=== PATIENT | female | born 1990 | race Caucasian/White ===

== ENCOUNTER 2018-06-24 18:22 | Inpatient (IN) ==
[2018-06-24] MEDS ORDERED: IOPAMIDOL 100 ML BOTTLE IV ONE (18:23)
[2018-06-24] MEDS ORDERED: ONDANSETRON 4 MG/2 ML VIAL IV ONE (18:45)
[2018-06-24] MEDS ORDERED: 0.9 % SODIUM CHLORIDE 1,000 ML IV ONE (18:45)
--- NOTE | 2018-06-24 18:49 | Emergency Department Note ---
Abdominal Pain HPI - General Chief Complaint: Abdominal Pain Stated Complaint: RLQ Abdominal Pain, Abdominal Girdle Pain Time Seen by Provider: 06/24/18 18:40 Source: patient Mode of arrival: ambulatory Limitations: no limitations - Related Data Home Medications Medication Instructions Recorded Confirmed Citalopram [Celexa] 20 mg PO DAILY 04/01/17 04/01/17 Omeprazole 20 mg PO DAILY 04/01/17 04/01/17 Allergies Allergy/AdvReac Type Severity Reaction Status Date / Time ceftriaxone [From Rocephin] Allergy Hives Verified 04/01/17 14:09 Abdominal Pain PMH - Past Medical History Medical history: Reports: 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 - Social History Smoking status: Current every day smoker Physical Exam Limitations: no limitations Course Vital Signs Temperature 98.0 F 06/24/18 18:24 Pulse Rate 88 06/24/18 18:24 Respiratory Rate 30 H 06/24/18 18:24 Blood Pressure 102/76 06/24/18 18:24 Pulse Oximetry (%) 97 06/24/18 18:24 Temperature 96.6 F L 06/25/18 03:16 Pulse Rate 70 06/25/18 03:16 Respiratory Rate 12 06/25/18 03:16 Blood Pressure 110/60 06/25/18 03:16 Pulse Oximetry (%) 97 06/25/18 03:16 Abdominal Pain - [facility] Narrative Medical decision making narrative: Patient seen in conjunction with [facility], agree with diagnosis and treatment and review of the x-rays and laboratory tests patient admitted to Dr. Gamble's service for acute appendicitis. - Lab Data Result diagrams: 06/24/18 18:47 06/24/18 18:47 Lab Results 06/24/18 06/24/18 06/24/18 Range/Units 18:47 18:47 18:50 WBC 19.9 H (4.5-11.0) K/mcL RBC 4.12 (4.00-5.20) M/mcL Hgb 12.6 (12.0-15.0) g/dL Hct 37.2 (36.0-48.0) % POC Hct (36.0-48.0) % MCV 90.3 (80.0-100.0) fL MCH 30.6 (26.0-34.0) pg MCHC 33.9 (31.0-36.0) g/dL RDW 12.6 (11.5-14.5) % Plt Count 237 (140-440) K/mcL MPV 10.5 H (7.4-10.4) fL Total Counted 100 Seg Neutrophils % 80 H (38-78) % Band Neutrophils % Not Reportable Lymphocytes % 14 L (15-49) % Monocytes % (Manual) 4 (1-12) % Eosinophils % (Manual) 1 (0-7) % Reactive Lymphocytes 1 (0-2) % Platelet Estimate Normal (NORMAL) RBC Morphology Normal (NORMAL) POC Sodium (133-145) mmol/L Sodium 138 (133-145) mmol/L POC Potassium (3.3-5.1) mmol/L Potassium 3.6 (3.3-5.1) mmol/L POC Chloride (96-108) mmol/L Chloride 104 (96-108) mmol/L Carbon Dioxide 21 L (22-30) mmol/L POC Total CO2 (22-30) mmol/L Anion Gap 13.0 (8-16) POC BUN (6-20) mg/dl BUN 16 (6-20) mg/dl Creatinine 0.8 (0.6-1.1) mg/dl POC Creatinine (0.6-1.1) mg/dl GFR Calculation 100 Glucose 117 H (70-105) mg/dL POC Glucose (70-105) mg/dL Calcium 8.8 (8.6-10.4) mg/dl POC WB Ioniz Calcium (1.16-1.32) mmol/L Total Bilirubin 0.2 (0.0-1.0) mg/dL AST 39 H (0-37) U/l ALT 52 H (0-40) U/l Alkaline Phosphatase 83 (39-117) U/L Total Protein 7.0 (5.9-8.4) gm/dL Albumin 4.3 (3.2-5.2) gm/dL Globulin 2.7 (2.2-3.7) gm/dL Albumin/Globulin Ratio 1.6 (1.0-2.3) Lipase 29 (7-60) U/L Urine Color Yellow Urine Appearance Hazy Urine pH 5.0 (5.0-9.0) Ur Specific [place] 1.028 (1.000-1.035) Urine Protein Neg (NEG) mg/dL Urine Glucose (UA) Negative (NEG) mg/dL Urine Ketones Neg (NEG) mg/dL Urine Occult Blood Neg (<0.03) mg/dL Urine Nitrate Neg (NEG) Urine Bilirubin Neg (NEG) mg/dL Urine Urobilinogen Neg (NEG) mg/dL Ur Leukocyte Esterase Neg (NEG) /uL Urine RBC < 1 (0-1) /hpf Urine WBC 2 (0-4) /hpf Ur Squamous Epith Cells 18 H (0-4) /hpf Ur Transition Epith Cell < 1 (0-2) /hpf Urine Bacteria 0 (0) /hpf Urine Mucus Many A (0) /hpf Ur Culture Indicated? No 06/24/18 Range/Units 19:15 WBC (4.5-11.0) K/mcL RBC (4.00-5.20) M/mcL Hgb (12.0-15.0) g/dL Hct (36.0-48.0) % POC Hct 36.0 (36.0-48.0) % MCV (80.0-100.0) fL MCH (26.0-34.0) pg MCHC (31.0-36.0) g/dL RDW (11.5-14.5) % Plt Count (140-440) K/mcL MPV (7.4-10.4) fL Total Counted Seg Neutrophils % (38-78) % Band Neutrophils % Lymphocytes % (15-49) % Monocytes % (Manual) (1-12) % Eosinophils % (Manual) (0-7) % Reactive Lymphocytes (0-2) % Platelet Estimate (NORMAL) RBC Morphology (NORMAL) POC Sodium 141 (133-145) mmol/L Sodium (133-145) mmol/L POC Potassium 3.4 (3.3-5.1) mmol/L Potassium (3.3-5.1) mmol/L POC Chloride 103 (96-108) mmol/L Chloride (96-108) mmol/L Carbon Dioxide (22-30) mmol/L POC Total CO2 24 (22-30) mmol/L Anion Gap (8-16) POC BUN 16 (6-20) mg/dl BUN (6-20) mg/dl Creatinine (0.6-1.1) mg/dl POC Creatinine 0.7 (0.6-1.1) mg/dl GFR Calculation Glucose (70-105) mg/dL POC Glucose 116 H (70-105) mg/dL Calcium (8.6-10.4) mg/dl POC WB Ioniz Calcium 1.08 L (1.16-1.32) mmol/L Total Bilirubin (0.0-1.0) mg/dL AST (0-37) U/l ALT (0-40) U/l Alkaline Phosphatase (39-117) U/L Total Protein (5.9-8.4) gm/dL Albumin (3.2-5.2) gm/dL Globulin (2.2-3.7) gm/dL Albumin/Globulin Ratio (1.0-2.3) Lipase (7-60) U/L Urine Color Urine Appearance Urine pH (5.0-9.0) Ur Specific [place] (1.000-1.035) Urine Protein (NEG) mg/dL Urine Glucose (UA) (NEG) mg/dL Urine Ketones (NEG) mg/dL Urine Occult Blood (<0.03) mg/dL Urine Nitrate (NEG) Urine Bilirubin (NEG) mg/dL Urine Urobilinogen (NEG) mg/dL Ur Leukocyte Esterase (NEG) /uL Urine RBC (0-1) /hpf Urine WBC (0-4) /hpf Ur Squamous Epith Cells (0-4) /hpf Ur Transition Epith Cell (0-2) /hpf Urine Bacteria (0) /hpf Urine Mucus (0) /hpf Ur Culture Indicated? Disposition Pt seen by SUPERVISOR PLEATING/PA only: No Clinical Impression: Acute appendicitis Disposition: Xfer As Inpt ([facility]) Condition: Fair
[2018-06-24 19:18] LABS: Mean Cell Volume 90.3 fL (80.0-100.0); Mean Corpuscular HGB Conc 33.9 g/dL (31.0-36.0); Mean Corpuscular Hemoglobin 30.6 pg (26.0-34.0); Platelet Count 237 K/mcL (140-440); RBC 4.12 M/mcL (4.00-5.20); Red Cell Distribution Width 12.6 % (11.5-14.5)
[2018-06-24 19:39] LABS: ALT/SGPT 52 U/l (0-40); Albumin 4.3 gm/dL (3.2-5.2); Albumin/Globulin Ratio 1.6 (1.0-2.3); Alkaline Phosphatase 83 U/L (39-117); Blood Urea Nitrogen 16 mg/dl (6-20); Lipase 29 U/L (7-60)
[2018-06-24 19:43] LABS: Eosinophils % (Manual) 1 % (0-7); Lymphocytes % 14 % (15-49); Monocytes % (Manual) 4 % (1-12); Platelet Estimate NORMAL (NORMAL); RBC Morphology NORMAL (NORMAL); Segmented Neutrophils % 80 % (38-78)
[2018-06-24] MEDS: HYDROmorphone 2 MG/ML VIAL IV PRN ×4 (19:46→23:20)
[2018-06-24 19:48] LABS: Appearance,Urine HAZY; Bacteria,Urine 0 /hpf (0); Bilirubin,Urine NEG (NEG); Color,Urine YELLOW; Glucose,Urine (UA) NEGATIVE (NEG); Leukocyte Esterase,Urine NEG /uL (NEG); Mucus,Urine MANY /hpf (0); Protein,Urine NEG (NEG); Specific Gravity,Urine 1.028 (1.000-1.035); Urine Blood NEG mg/dL (<0.03); Urine RBC < 1 /hpf (0-1); Urine Squamous Epithelial Cell 18 /hpf (0-4); Urine Transitional Epi Cells < 1 /hpf (0-2); Urine WBC 2 /hpf (0-4); Urobilinogen,Urine NEG (NEG)
--- NOTE | 2018-06-24 19:59 | Emergency Department Note ---
Abdominal Pain HPI - General Chief Complaint: Abdominal Pain Stated Complaint: RLQ Abdominal Pain, Abdominal Girdle Pain Time Seen by Provider: 06/24/18 18:40 Source: patient Mode of arrival: ambulatory Limitations: no limitations - History of Present Illness HPI Narrative: 27-year-old female presents to the emergency department stating with complaint of right lower quadrant and epigastric pain that began this morning around 1100. She describes pain as sharp and rates pain 8 out of 10 on a 0-10 numerical pain scale. She states that she is also nauseous and has had vomiting of yellow foamy vomit. She denies any fevers but states that she has been chilled. She reports last menstrual period was June 05, 2018. - Related Data Home Medications Medication Instructions Recorded Confirmed Citalopram [Celexa] 20 mg PO DAILY 04/01/17 04/01/17 Omeprazole 20 mg PO DAILY 04/01/17 04/01/17 Allergies Allergy/AdvReac Type Severity Reaction Status Date / Time ceftriaxone [From Rocephin] Allergy Hives Verified 04/01/17 14:09 Review of Systems Review of Systems: Except as noted in the HPI, a Review of Systems was found to be negative. Specifically: Constitutional: No chronic fatigue, unexplained weight gain, or weight loss. Eyes: No visual impairment, no pain, watering, discharge, or itching. ENT: No ear or sinus infections. No reoccurring nosebleeds, no chronic nasal congestion. No mouth lesions or dental pain. No throat pain or dysphagia. Respiratory: No wheezing, dyspnea on exertion, or chronic cough. CV: No chest pain, cyanosis, palpitations, dizziness, or fainting. GI: No reflux symptoms, or diarrhea. Musculoskeletal: No muscle pain or weakness, no joint pain or limitations. Neurologic: No headache, weakness, numbness, dizziness, or seizures. Endocrine: No hot or cold intolerances, excessive sweating, excessive thirst, or frequent urination. Hematologic/lymphatic: No blood disorder. No swollen lymph nodes. Integumentary: No problem with rashes, eczema, changing of skin lesions. No nail abnormalities. Psychiatric: No depression, anxiety, or sleep disorder. 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 Absent: distention, guarding, rigidity Abdominal tenderness: Present: RLQ, epigastrium Extremities: Present: normal inspection, full ROM, normal capillary refill. Absent: tenderness, pedal edema, pretibial edema Back: Present: normal inspection. Absent: CVA tenderness (R), CVA tenderness (L ) Neurological: Present: alert, oriented X3 Skin: Present: warm, dry, intact, normal color Course Vital Signs Temperature 98.0 F 06/24/18 18:24 Pulse Rate 88 06/24/18 18:24 Respiratory Rate 30 H 06/24/18 18:24 Blood Pressure 102/76 06/24/18 18:24 Pulse Oximetry (%) 97 06/24/18 18:24 Temperature 98.0 F 06/24/18 18:24 Pulse Rate 72 06/24/18 20:31 Respiratory Rate 30 H 06/24/18 18:24 Blood Pressure 124/79 06/24/18 20:31 Pulse Oximetry (%) 97 06/24/18 20:31 Abdominal Pain - MDM Narrative Medical decision making narrative: CBC shows leukocytosis of 19.9 elevation of AST at 39 and ALTs at 52. Urinalysis is remarkably well. CT abdomen and pelvis suggesting early acute appendicitis. Spoke with Dr. Jimi Gamble who will see the patient tomorrow for possible appendectomy. Patient was given pain medication, nausea medication , fluids via IV, Levaquin 750 mg IV every 24 hours, and will be nothing by mouth after midnight. She will be admitted to [facility] floor. - Lab Data Lab results reviewed: Yes I reviewed the patient's lab results. Result diagrams: 06/24/18 18:47 06/24/18 18:47 Lab Results 06/24/18 06/24/18 06/24/18 Range/Units 18:47 18:47 18:50 WBC 19.9 H (4.5-11.0) K/mcL RBC 4.12 (4.00-5.20) M/mcL Hgb 12.6 (12.0-15.0) g/dL Hct 37.2 (36.0-48.0) % POC Hct (36.0-48.0) % MCV 90.3 (80.0-100.0) fL MCH 30.6 (26.0-34.0) pg MCHC 33.9 (31.0-36.0) g/dL RDW 12.6 (11.5-14.5) % Plt Count 237 (140-440) K/mcL MPV 10.5 H (7.4-10.4) fL Total Counted 100 Seg Neutrophils % 80 H (38-78) % Band Neutrophils % Not Reportable Lymphocytes % 14 L (15-49) % Monocytes % (Manual) 4 (1-12) % Eosinophils % (Manual) 1 (0-7) % Reactive Lymphocytes 1 (0-2) % Platelet Estimate Normal (NORMAL) RBC Morphology Normal (NORMAL) POC Sodium (133-145) mmol/L Sodium 138 (133-145) mmol/L POC Potassium (3.3-5.1) mmol/L Potassium 3.6 (3.3-5.1) mmol/L POC Chloride (96-108) mmol/L Chloride 104 (96-108) mmol/L Carbon Dioxide 21 L (22-30) mmol/L POC Total CO2 (22-30) mmol/L Anion Gap 13.0 (8-16) POC BUN (6-20) mg/dl BUN 16 (6-20) mg/dl Creatinine 0.8 (0.6-1.1) mg/dl POC Creatinine (0.6-1.1) mg/dl GFR Calculation 100 Glucose 117 H (70-105) mg/dL POC Glucose (70-105) mg/dL Calcium 8.8 (8.6-10.4) mg/dl POC WB Ioniz Calcium (1.16-1.32) mmol/L Total Bilirubin 0.2 (0.0-1.0) mg/dL AST 39 H (0-37) U/l ALT 52 H (0-40) U/l Alkaline Phosphatase 83 (39-117) U/L Total Protein 7.0 (5.9-8.4) gm/dL Albumin 4.3 (3.2-5.2) gm/dL Globulin 2.7 (2.2-3.7) gm/dL Albumin/Globulin Ratio 1.6 (1.0-2.3) Lipase 29 (7-60) U/L Urine Color Yellow Urine Appearance Hazy Urine pH 5.0 (5.0-9.0) Ur Specific [place] 1.028 (1.000-1.035) Urine Protein Neg (NEG) mg/dL Urine Glucose (UA) Negative (NEG) mg/dL Urine Ketones Neg (NEG) mg/dL Urine Occult Blood Neg (<0.03) mg/dL Urine Nitrate Neg (NEG) Urine Bilirubin Neg (NEG) mg/dL Urine Urobilinogen Neg (NEG) mg/dL Ur Leukocyte Esterase Neg (NEG) /uL Urine RBC < 1 (0-1) /hpf Urine WBC 2 (0-4) /hpf Ur Squamous Epith Cells 18 H (0-4) /hpf Ur Transition Epith Cell < 1 (0-2) /hpf Urine Bacteria 0 (0) /hpf Urine Mucus Many A (0) /hpf Ur Culture Indicated? No 06/24/18 Range/Units 19:15 WBC (4.5-11.0) K/mcL RBC (4.00-5.20) M/mcL Hgb (12.0-15.0) g/dL Hct (36.0-48.0) % POC Hct 36.0 (36.0-48.0) % MCV (80.0-100.0) fL MCH (26.0-34.0) pg MCHC (31.0-36.0) g/dL RDW (11.5-14.5) % Plt Count (140-440) K/mcL MPV (7.4-10.4) fL Total Counted Seg Neutrophils % (38-78) % Band Neutrophils % Lymphocytes % (15-49) % Monocytes % (Manual) (1-12) % Eosinophils % (Manual) (0-7) % Reactive Lymphocytes (0-2) % Platelet Estimate (NORMAL) RBC Morphology (NORMAL) POC Sodium 141 (133-145) mmol/L Sodium (133-145) mmol/L POC Potassium 3.4 (3.3-5.1) mmol/L Potassium (3.3-5.1) mmol/L POC Chloride 103 (96-108) mmol/L Chloride (96-108) mmol/L Carbon Dioxide (22-30) mmol/L POC Total CO2 24 (22-30) mmol/L Anion Gap (8-16) POC BUN 16 (6-20) mg/dl BUN (6-20) mg/dl Creatinine (0.6-1.1) mg/dl POC Creatinine 0.7 (0.6-1.1) mg/dl GFR Calculation Glucose (70-105) mg/dL POC Glucose 116 H (70-105) mg/dL Calcium (8.6-10.4) mg/dl POC WB Ioniz Calcium 1.08 L (1.16-1.32) mmol/L Total Bilirubin (0.0-1.0) mg/dL AST (0-37) U/l ALT (0-40) U/l Alkaline Phosphatase (39-117) U/L Total Protein (5.9-8.4) gm/dL Albumin (3.2-5.2) gm/dL Globulin (2.2-3.7) gm/dL Albumin/Globulin Ratio (1.0-2.3) Lipase (7-60) U/L Urine Color Urine Appearance Urine pH (5.0-9.0) Ur Specific [place] (1.000-1.035) Urine Protein (NEG) mg/dL Urine Glucose (UA) (NEG) mg/dL Urine Ketones (NEG) mg/dL Urine Occult Blood (<0.03) mg/dL Urine Nitrate (NEG) Urine Bilirubin (NEG) mg/dL Urine Urobilinogen (NEG) mg/dL Ur Leukocyte Esterase (NEG) /uL Urine RBC (0-1) /hpf Urine WBC (0-4) /hpf Ur Squamous Epith Cells (0-4) /hpf Ur Transition Epith Cell (0-2) /hpf Urine Bacteria (0) /hpf Urine Mucus (0) /hpf Ur Culture Indicated? - Radiology Data Radiology results reviewed: Yes I reviewed the patient's radiology results. CT abdomen and pelvis with contrast final impression shows mild fatty inflammation surrounds minimally dilated appendix suggesting early acute appendicitis. Correlate clinically. Disposition Pt seen by NURSING HOME MANAGER/PA only: Yes Clinical Impression: Acute appendicitis Disposition: Xfer As Inpt ([facility]) Condition: Fair Referrals: Girish Nicholson [Primary Care Provider] -
--- NOTE | 2018-06-24 20:13 | Emergency Department Note ---
ED Note Addendum Note Addendum: Patient seen in conjunction with [facility]. She does have localized right lower quadrant pain. White count is elevated 19,000, CT was performed which showed appendicitis. Dr. Gamble has been contacted. Agree with diagnosis and treatment. Patient to be admitted
[2018-06-24] MEDS ORDERED: PIPERACILLIN SODIUM/TAZOBACTAM 3.375 GM in DEXTROSE 5% IN WATER 50 ML IV SCH (20:15)
[2018-06-24] MEDS ORDERED: LEVOFLOXACIN 750 MG/150 ML BAG IV SCH (20:30)
[2018-06-24] MEDS: ONDANSETRON 4 MG/2 ML VIAL IV PRN (21:45)
[2018-06-24] MEDS: 0.9 % SODIUM CHLORIDE 1,000 ML IV SCH (21:55)
[2018-06-24] MEDS ORDERED: KETOROLAC 15 MG/ML VIAL ONE (23:16)
[2018-06-24] MEDS ORDERED: HYDROmorphone 2 MG/ML VIAL ONE (23:16)
[2018-06-24] MEDS: KETOROLAC 15 MG/ML VIAL IV SCH (23:17)
[2018-06-25] MEDS ORDERED: ACETAMINOPHEN 1,000 MG/100 ML BOTTLE IV SCH
[2018-06-25] MEDS ORDERED: HYDROmorphone 2 MG/ML VIAL ONE ×2 (01:40→03:28)
[2018-06-25] MEDS: HYDROmorphone 2 MG/ML VIAL IV PRN ×3 (01:42→23:09)
[2018-06-25] MEDS: ONDANSETRON 4 MG/2 ML VIAL IV PRN (01:42)
[2018-06-25] MEDS: 0.9 % SODIUM CHLORIDE 1,000 ML IV SCH ×3 (03:13→15:35)
[2018-06-25] MEDS ORDERED: KETOROLAC 15 MG/ML VIAL ONE (05:31)
[2018-06-25] MEDS: ACETAMINOPHEN 1,000 MG/100 ML BOTTLE IV SCH ×4 (05:32→23:13)
[2018-06-25] MEDS: KETOROLAC 15 MG/ML VIAL IV SCH ×3 (05:40→17:22)
--- NOTE | 2018-06-25 05:51 | Cat Scan Report ---
CLINICAL INFORMATION: Abdominal pain. Right lower quadrant pain. Nausea and vomiting. COMPARISON: None. TECHNIQUE: Axial images were obtained through the abdomen and pelvis. Sagittally and coronally reformatted images. 80 mL contrast material injected intravenously. Oral contrast material was not administered FINDINGS: The appendix is prominent and measures 7 to 8 mm in cross-sectional diameter. There is mild periappendiceal inflammatory change. Appearance is consistent with early acute appendicitis. No evidence for ruptured appendicitis. No free fluid. No abscess. No pneumoperitoneum. Colon is otherwise negative. No diverticulitis. Mechanical small bowel obstruction. The small bowel is not dilated. No significant retroperitoneal or mesenteric adenopathy. There are small lymph nodes in the right lower quadrant which are not enlarged. Lung bases are negative. No focal infiltrate or mass. No pleural fluid. No pericardial fluid. Negative liver. No focal intrahepatic abnormality. Liver contour is smooth. No evidence for cirrhosis. No ascites. The gallbladder is present. No calcified gallstones no dilated bile ducts. Negative spleen. No splenomegaly. Normal enhancement splenic and portal veins. Negative pancreas. No evidence for pancreatitis. No pancreatic mass. Negative adrenal glands. Kidneys are normal. No hydronephrosis. No solid or cystic mass. No detectable calculi. No rib. No bladder stone. Uterus is anteflexed. No adnexal mass. Lower thoracic and lumbar spine are abnormal with endplate irregularity and vacuum disks. There is narrowing of multiple lumbar vertebral bodies is well wedging of the L1 and L2 vertebral bodies. Appearance is consistent with Scheuermann's disease in this young patient. Sacrum and pelvis are negative. Hips are negative. Examination was initially interpreted by [facility] IMPRESSION: 1. Mild periappendiceal inflammatory change consistent with early acute appendicitis. No evidence for ruptured appendicitis 2. Changes consistent with Scheuermann's disease in lower thoracic and lumbar spine. The exam was performed using radiation dose optimization techniques including, but not limited to, automated exposure control, adjustment of the mA and/or kV according to patient size and use of iterative reconstruction technique. Interpreted and Authenticated by: Nigel Rodríguez 06/25/18
--- NOTE | 2018-06-25 07:46 | General Surg History&Physical ---
History of Present Illness Patient information: Note initiated : 06/25/18 at 7:44 am Service Date, if different from initiated Date: [] Patient: Zuri Wyman a 27 y/o F admitted on 06/24/18 for RLQ Abdominal Pain, Abdominal Girdle Pain. Chief Complaint: [] Abdominal pain, nausea and vomiting HPI: Ms. Wyman is a 27 year old F with history of onset of right lower quadrant pain about 2 PM on 24 June. The pain progressed over the next 3 hours and she was seen in the emergency room. She was found to have right lower quadrant tenderness and had recurrent episodes of vomiting. Abdominal CT showed dilated edematous appendix with periappendiceal edema compatible with appendicitis. She also had significant leukocytosis. She has not had similar pain in the past. She her only pelvic surgery with and tubal ligation. Patient has been admitted and will be scheduled for appendectomy on July 09. Review of Systems - Constitutional anorexia, headache(s), malaise - Respiratory dyspnea on exertion Past History Past medical history: History of clinical depression, not on therapy Past surgical history: and tubal ligation Past family history: Both parents alive and well without illness a 47. 6. Siblings alive and well without illness Past social history: Single mother of 3 children. Tobacco one pack per day of cigarettes 10 years. Alcohol no use. Substance abuse. Denies use of any kind Medications and Allergies Home Medications Medication Instructions Recorded Confirmed Type Citalopram [Celexa] 20 mg PO DAILY 04/01/17 04/01/17 History Omeprazole 20 mg PO DAILY 04/01/17 04/01/17 History Allergies Allergy/AdvReac Type Severity Reaction Status Date / Time ceftriaxone [From Rocephin] Allergy Hives Verified 04/01/17 14:09 Exam Temp Pulse Resp BP Pulse Ox 96.8 F L 62 16 104/62 98 06/25/18 07:28 06/25/18 07:28 06/25/18 07:28 06/25/18 07:28 06/25/18 07:28 - General physical appearance well developed, well nourished, moderate distress, moderate pain, obese - Eyes PERRL, normal ocular movement - ENT normal pinna, normal nares, normal mucosa, no hearing loss, no congestion - Head Head exam IM: Present: atraumatic, normocephalic - Neck no masses, no bruits, trachea midline, no lymphadectomy, no venous distension - Cardiovascular Cardiovascular exam IM: Present: normal rate and rhythm - Respiratory normal expansion, normal respiratory effort, clear to percussion, clear to auscultation - Abdomen Abdomen: Present: soft, non tender, tender (obese abdomen with tenderness and guarding in the right lower quadrant; active bowel sounds), bowel sounds Hernia: Present: none - Genitourinary Present: normal external genitalia - Integumentary Present: no rash, no growths, no abnormal pigmentation - Neurologic Present: normal coordination, normal sensation - Musculoskeletal Present: normal gait, normal posture - Psychiatric Present: oriented to time, oriented to person, oriented to place, speech is normal, memory intact Assessment and Plan (1) Acute appendicitis Patient is counseled for laparoscopic appendectomy. It will be done later today. Status: Acute Qualifiers: Acute appendicitis type: with localized peritonitis Qualified Code(s): K35.3 - Acute appendicitis with localized peritonitis
[2018-06-25 09:19] LABS: Basophils # (Auto) 0 K/mcL (0.0-0.3); Basophils % (Auto) 0.3 % (0.0-2.0); Eosinophils # (Auto) 0.1 K/mcL (0.0-0.7); Granulocytes % (Auto) 69.9 % (38.0-78.0); Lymphocytes # (Auto) 2.5 K/mcL (1.5-4.8); Lymphocytes % (Auto) 19.9 % (15.5-49.0); Mean Cell Volume 92.1 fL (80.0-100.0); Mean Corpuscular HGB Conc 34.3 g/dL (31.0-36.0); Mean Corpuscular Hemoglobin 31.5 pg (26.0-34.0); Monocytes # (Auto) 1.1 K/mcL (0.1-0.9); Monocytes % (Auto) 8.9 % (1.0-12.0); Platelet Count 174 K/mcL (140-440); RBC 3.45 M/mcL (4.00-5.20); Red Cell Distribution Width 12.7 % (11.5-14.5)
[2018-06-25 09:59] LABS: ALT/SGPT 34 U/l (0-40); Albumin 3.3 gm/dL (3.2-5.2); Albumin/Globulin Ratio 1.4 (1.0-2.3); Alkaline Phosphatase 65 U/L (39-117); Bilirubin,Direct < 0.2 mg/dL (0.0-0.3); Blood Urea Nitrogen 12 mg/dl (6-20); Gamma Glutamyl Transpeptidase 32 U/L (5-36); Uric Acid 4.6 mg/dL (2.5-8.0)
[2018-06-25] MEDS ORDERED: MIDAZOLAM 5 MG/5 ML VIAL IV ONE (13:20)
[2018-06-25] MEDS ORDERED: PROPOFOL 200 MG/20 ML VIAL IV ONE (13:20)
[2018-06-25] MEDS ORDERED: DEXAMETHASONE 10 MG/ML VIAL IV ONE (13:20)
[2018-06-25] MEDS ORDERED: SUCCINYLCHOLINE 20 MG/ML ML IV ONE (13:20)
[2018-06-25] MEDS ORDERED: ONDANSETRON 4 MG/2 ML VIAL IV ONE (13:20)
[2018-06-25] MEDS ORDERED: LIDOCAINE HCL/PF 100 MG/5 ML SYRINGE IV ONE (13:20)
[2018-06-25] MEDS ORDERED: fentaNYL 250 MCG/5 ML VIAL IV ONE (13:20)
[2018-06-25] MEDS ORDERED: NEOSTIGMINE 1 MG/ML VIAL IV ONE (13:20)
[2018-06-25] MEDS ORDERED: ROCURONIUM 10 MG/ML ML IV ONE (13:20)
[2018-06-25] MEDS ORDERED: GLYCOPYRROLATE 0.2 MG/ML VIAL IV ONE (13:20)
[2018-06-25] MEDS ORDERED: IPRATROPIUM/ALBUTEROL 3 ML AMPUL.NEB NEB PRN (13:32)
[2018-06-25] MEDS ORDERED: PROMETHAZINE 25 MG/ML VIAL IV PRN (13:32)
[2018-06-25] MEDS ORDERED: diphenhydrAMINE 50 MG/ML VIAL IV PRN (13:32)
[2018-06-25] MEDS ORDERED: FLUMAZENIL 0.1 MG/ML ML IV PRN (13:32)
[2018-06-25] MEDS ORDERED: fentaNYL 100 MCG/2 ML VIAL IV PRN (13:32)
[2018-06-25] MEDS ORDERED: ONDANSETRON 4 MG/2 ML VIAL IV PRN ×2 (13:32→15:29)
[2018-06-25] MEDS ORDERED: ACETAMINOPHEN 1,000 MG/100 ML BOTTLE IV ONE (13:32)
[2018-06-25] MEDS ORDERED: LACTATED RINGERS 250 ML IV PRN (13:32)
[2018-06-25] MEDS ORDERED: NALOXONE HCL 0.4 MG/ML VIAL IV PRN (13:32)
[2018-06-25] MEDS ORDERED: KETOROLAC 15 MG/ML VIAL IV PRN (13:32)
[2018-06-25] MEDS ORDERED: BENZOCAINE/MENTHOL 1 LOZENGE PO PRN (13:32)
[2018-06-25] MEDS ORDERED: MEPERIDINE 25 MG/ML SYRINGE IV PRN (13:32)
[2018-06-25] MEDS ORDERED: LACTATED RINGERS 1,000 ML IV SCH (13:45)
--- NOTE | 2018-06-25 14:32 | Brief Operative Note ---
Date of procedure: 06/25/18 Pre-op diagnosis: ACUTE APPENDICITIS Post-op diagnosis: other (ACUTE APPENDICITIS) Procedure: LAPAROSCOPIC APPENDECTOMY Grafts/Implants: No Anesthesia: GETA Findings: DENSE PELVIC ADHESIONS ACUTE SUPPURATIVE APPENDICITIS Complications: none Surgeon: Isaak Gamble Specimens Removed/Pathology: other (APPENDIX) Condition: stable Disposition: PACU
[2018-06-25] MEDS ORDERED: LEVOFLOXACIN 750 MG/150 ML BAG IV SCH (20:00)
[2018-06-25] MEDS ORDERED: NICOTINE 21 MG PATCH TOPICAL SCH (20:00)
[2018-06-26] MEDS: KETOROLAC 15 MG/ML VIAL IV SCH ×2 (00:41→06:12)
[2018-06-26] MEDS: 0.9 % SODIUM CHLORIDE 1,000 ML IV SCH ×2 (03:44→05:38)
[2018-06-26 06:12] LABS: Basophils # (Auto) 0 K/mcL (0.0-0.3); Basophils % (Auto) 0.2 % (0.0-2.0); Eosinophils # (Auto) 0 K/mcL (0.0-0.7); Eosinophils % (Auto) 0 % (0.0-7.0); Granulocytes % (Auto) 81.6 % (38.0-78.0); Lymphocytes # (Auto) 1.3 K/mcL (1.5-4.8); Lymphocytes % (Auto) 12.3 % (15.5-49.0); Mean Cell Volume 92.2 fL (80.0-100.0); Mean Corpuscular HGB Conc 33.7 g/dL (31.0-36.0); Mean Corpuscular Hemoglobin 31.1 pg (26.0-34.0); Monocytes # (Auto) 0.6 K/mcL (0.1-0.9); Monocytes % (Auto) 5.9 % (1.0-12.0); Platelet Count 168 K/mcL (140-440); RBC 3.31 M/mcL (4.00-5.20); Red Cell Distribution Width 12.4 % (11.5-14.5)
[2018-06-26] MEDS: ACETAMINOPHEN 1,000 MG/100 ML BOTTLE IV SCH (06:12)
[2018-06-26 06:35] LABS: ALT/SGPT 30 U/l (0-40); Albumin 3.3 gm/dL (3.2-5.2); Albumin/Globulin Ratio 1.3 (1.0-2.3); Alkaline Phosphatase 70 U/L (39-117); Bilirubin,Direct < 0.2 mg/dL (0.0-0.3); Blood Urea Nitrogen 9 mg/dl (6-20); Gamma Glutamyl Transpeptidase 45 U/L (5-36); Uric Acid 3.9 mg/dL (2.5-8.0)
[2018-06-26] MEDS: HYDROmorphone 2 MG/ML VIAL IV PRN (08:09)
--- NOTE | 2018-06-26 12:21 | Discharge Summary ---
Providers - Providers Patient information: Note initiated : 06/26/18 at 12:20 pm Service Date, if different from initiated Date: [] Patient: Zuri Wyman 27 y/o F admitted on 06/24/18 for RLQ Abdominal Pain, Abdominal Girdle Pain. Chief Complaint: [] Date of admission: 06/24/18 Discharge date: 06/26/18 Attending physician: Isaak Gamble Hospitalization Hospital course: 27-year-old female admitted in the evening of 24 June 4. Right lower quadrant pain with nausea and vomiting and leukocytosis. CT of the abdomen showed acute appendicitis. On for June. She had an uneventful laparoscopic appendectomy for acute suppurative appendicitis. In the interim, she has done well and has no complaints. Her white count has returned to normal. She is tolerating diet without difficulty.. She is discharged home in stable satisfactory condition Discharge diagnosis: acute appendicitis Reason for admission: , abdominal pain, nausea and vomiting Procedures: Laparoscopic appendectomy Pertinent studies/significant findings: CT of abdomen and pelvis with contrast Complications: None Exam Temp Pulse Resp BP Pulse Ox 97.1 F 58 L 14 111/69 94 06/26/18 08:00 06/26/18 08:00 06/26/18 08:00 06/26/18 08:00 06/26/18 08:00 - General physical appearance well developed, well nourished, no distress, obese - Eyes PERRL, normal ocular movement - ENT normal pinna, normal nares, normal mucosa, no hearing loss, no congestion - Head Head exam IM: Present: atraumatic, normocephalic - Neck no masses, no bruits, trachea midline, no lymphadectomy, no venous distension - Cardiovascular Cardiovascular exam IM: Present: normal rate and rhythm - Respiratory normal expansion, normal respiratory effort, clear to percussion, clear to auscultation - Abdomen Abdomen: Present: soft, tender (mild tenderness around port sites but no tenderness in right lower quadrant; good active bowel), bowel sounds Hernia: Present: none - Genitourinary Present: normal external genitalia - Integumentary Present: no rash, no growths, no abnormal pigmentation - Neurologic Present: normal coordination, normal sensation - Musculoskeletal Present: normal gait, normal posture - Psychiatric Present: oriented to time, oriented to person, oriented to place, speech is normal, memory intact Discharge Plan - Patient/Caregiver Discharge Instructions Activity: increase activity as tolerated Diet: Regular Diet Additional Instructions: . The dressing intact continue return to the office May shower but no tub baths. Office visit in 2 weeks Prescriptions: oxyCODONE/APAP [Percocet 5-325 mg] 1 tab PO Q4HP PRN #40 tab PRN Reason: Pain - Follow up Plan Follow up with: Isaak Gamble MD [Physician] - 07/09/18 8:45 am Disposition: Home, Self-Care Prognosis: Good Rehab Potential: Good I certify that the patient requires SNF services.: No Overall status at discharge: patient is not back to baseline Pending Studies Resuscitation Status Full Code Diet Regular Diet Start SunJun 26 1046 Hydromorphone HCl (Dilaudid) 1 mg IV Q2HP PRN PRN Reason: PAIN LEVEL > 6 Last Admin: 06/26/18 08:09 Dose: 1 mg Admin: 06/25/18 23:09 Dose: 1 mg Admin: 06/25/18 19:19 Dose: 1 mg Levofloxacin (Levaquin) 750 mg in 150 mls @ 100 mls/hr IV Q24H [facility] Last Infusion: 06/26/18 04:08 Dose: 0 mls/hr Admin: 06/25/18 19:23 Dose: 100 mls/hr Sodium Chloride (Sodium Chloride 0.9%) 1,000 mls @ 100 mls/hr IV .Q10H [facility] Last Admin: 06/26/18 05:38 Dose: 100 mls/hr Admin: 06/26/18 03:44 Dose: Not Given Infusion: 06/26/18 03:15 Dose: 100 mls/hr Infusion: 06/25/18 23:40 Dose: 100 mls/hr Infusion: 06/25/18 22:00 Dose: 0 mls/hr Admin: 06/25/18 15:35 Dose: 100 mls/hr Acetaminophen (Ofirmev) 1,000 mg in 100 mls @ 200 mls/hr IV Q6H [facility] Last Infusion: 06/26/18 06:53 Dose: 0 mls/hr Admin: 06/26/18 06:12 Dose: 200 mls/hr Infusion: 06/26/18 00:41 Dose: 0 mls/hr Admin: 06/25/18 23:13 Dose: 200 mls/hr Infusion: 06/25/18 19:35 Dose: 0 mls/hr Admin: 06/25/18 17:22 Dose: 200 mls/hr Ketorolac Tromethamine (Toradol) 15 mg IV Q6 [facility] Stop: 06/26/18 18:01 Last Admin: 06/26/18 06:12 Dose: 15 mg Admin: 06/26/18 00:41 Dose: 15 mg Admin: 06/25/18 17:22 Dose: 15 mg Nicotine (Nicoderm) 21 mg TOPICAL DAILY@1999 [facility] Last Admin: 06/25/18 20:36 Dose: 21 mg Shift Summary 06/26/18 03:59 Shift Summary by Emilie Gray VSZheng. A&Ox4. 3 lap appy sites with film dressing to abdomen. IV to L FA running NS 0.9% at 100mls/hr. Voiding well. Up to bathroom with SBA/assistance for IV pole. 1mg IV Dilaudid given at approx. 2300 for increased pain after ambulation and first bowl of soup. Tolerating full liquid diet since that time without nausea, no further pain with second bowl of soup. Initialized on 06/26/18 03:59 - END OF NOTE
--- NOTE | 2018-06-26 14:00 | Surgical Pathology Report ---
HISTOLOGY SPECIMEN MICROSCOPIC DIAGNOSIS APPENDIX, APPENDECTOMY: -- SUPPURATIVE ACUTE APPENDICITIS WITH TRANSMURAL INFLAMMATION AND SEVERE ACUTE PERITONITIS. (ACP:lisa) PROCEDURAL IMPRESSION Acute appendicitis. GROSS DESCRIPTION Received in formalin labeled with the patient information and designated appendix, is a 5.9 cm in length by up to 0.8 cm diameter pink-fontaine appendix with attached 1.3 cm of yellow-fontaine fat. The proximal margin is closed with a staple line. There is possible minor-fontaine exudate present on the distal end of the appendix. The specimen is serially sectioned with the most proximal section inked black. Pre Sales Technical Engineer sections submitted in one cassette. (KGW:sln) Electronically Signed by: Kyler Castillo M.D.
--- NOTE | 2018-06-27 13:21 | Operative Note ---
DATE OF OPERATION: 06/25/2018 PREOPERATIVE DIAGNOSIS: Acute appendicitis. POSTOPERATIVE DIAGNOSIS: Acute appendicitis with extensive pelvic adhesions. PROCEDURE: Laparoscopic appendectomy and extensive adhesiolysis of the pelvis. SURGEON: Isaak Gamble M.D. FINDINGS: Dense pelvic adhesions and acute suppurative appendicitis. DESCRIPTION: Under general anesthesia, the patient's abdomen was prepped and draped in a sterile field. Timeout procedure was carried out as per protocol. A supraumbilical incision was made and Veress needle was inserted. Peritoneal cavity was insufflated with 3 liters of CO2. A 12 mm port was placed. Laparoscope was placed. Upon placing the laparoscope, there were dense adhesions in the pelvis and the lower pelvis could not be visualized. An incision was made in the left lower quadrant and a 12 mm port was placed. Using the Hook electrode dissector, I was able to remove some of the adhesions in the pelvis so that I could place a 5 mm port in the midline. Once this was done, I moved the camera to the left lower quadrant and placed the Hook dissector in the supraumbilical midline port, and under direct vision was able to do adhesiolysis, starting at the umbilicus and extending down to the pelvis. I then reversed the camera and moved it to the supraumbilical port and the dissector back into the pelvis. I was then able to remove the adhesions in the left lower quadrant, as well as in the right lower quadrant and the residual adhesions in the pelvis. Once this was done, the cecum could be identified. The appendix was grasped at its base and held with a self-retaining retractor. A window was made in the mesoappendix at the base and then Endo MELVA stapler was placed across the base and fired without difficulty. The mesoappendix was further dissected and was transected using the Endo MELVA stapler with three fires of the stapler. The staple line was secure and there was no bleeding. The appendix was placed in an EndoCatch device and retrieved. Irrigation was carried out. Pelvis was irrigated. There was no bleeding noted. There was no evidence of visceral injury. CO2 was allowed to escape from the abdomen and the ports were removed. Fascia at the umbilicus was closed with interrupted 0 Vicryl. Skin incisions were closed with darren. The patient tolerated the procedure well. Tegaderm dressings were placed. She was awakened, transferred to a bed, and taken to the postanesthetic care unit in stable, satisfactory condition. LCS:ujne Job ID: [id number] Doc ID: [id number] Isaak Gamble M.D.
== END 2018-06-26 13:50 | disposition home or self-care (01) | DRG 340 ==
LOC: ED 18:22 → MEDSUR 21:16
PROVIDERS: ADMIT Family Medicine Adult Medicine; ATTEND Family Medicine Adult Medicine
PROC: LAPAPPY (ICD-10-PCS; 2018-06-25 13:15)